=== PATIENT | female | born 1960 | race African-American/Black ===

== ENCOUNTER 2021-07-14 08:44 | Inpatient (IN) | payer MEDICAID, OTHER ==
[~2021-07-14] VITALS: Ht 167.6 cm; Wt 78.5 kg
[2021-07-14] MEDS ORDERED: SODIUM CHLORIDE 0.9% 1,000 ML IV ONE (09:00)
[2021-07-14 11:11] LABS: BASOPHILS % 0.2 % (0.0-2.0); EOSINOPHILS % 0.2 % (0.0-5.0); HEMATOCRIT. 35.5 % (36.0-48.0); HEMOGLOBIN. 10.8 g/dL (12.0-16.0); LYMPHOCYTES % 11.1 % (20.0-50.0); MEAN CORPUSCULAR HEMOGLOBIN 23.7 pg (28.0-32.0); MEAN CORPUSCULAR VOLUME 78.3 fL (81.0-99.0); MEAN PLATELET VOLUME 8.4 fl (7.4-10.4); MONOCYTES % 10.9 % (2.0-8.0); NEUTROPHILS % 77.6 % (40.0-76.0); PLATELET 395 x1000/uL (130-400); RED BLOOD CELL COUNT 4.54 mill/uL (4.2-5.4); RED CELL DISTRIBUTION WIDTH 21.6 % (11.6-14.6)
[2021-07-14 11:14] LABS: CHLORIDE 101 mEq/L (98-107)
[2021-07-14 11:20] LABS: INR 1.1
[2021-07-14 12:04] LABS: CLARITY URINE TURBID (CLEAR); COLOR URINE DARK YELLOW (YELLOW); KETONES URINE TRACE (NEGATIVE); LEUKOCYTE ESTERASE URINE TRACE (NEGATIVE); NITRITE URINE NEGATIVE (NEGATIVE); OCCULT BLOOD URINE 1+ (NEGATIVE); PROTEIN URINE 4+ (NEGATIVE); SPECIFIC GRAVITY URINE 1.025 (1.005-1.030)
[2021-07-14] MEDS ORDERED: CEFTRIAXONE 1 G PREMIX 50 ML IV ONE (12:45)
[2021-07-14] MEDS ORDERED: METRONIDAZOLE 500MG TABLET PO ONE (12:45)
[2021-07-14 23:00] VITALS: BP 135/96
[2021-07-15] MEDS ORDERED: METRONIDAZOLE 500 MG PREMIX 100 ML IV SCH
[2021-07-15] MEDS ORDERED: ONDANSETRON HCL 4MG/2ML INJ IV PRN
[2021-07-15] MEDS ORDERED: NALOXONE HCL 0.4 MG/ML 1ML VIAL IV PRN (00:30)
[2021-07-15 01:27] LABS: HEMATOCRIT 32.5 % (36.0-48.0); HEMOGLOBIN 10.1 g/dL (12.0-16.0); MEAN CORPUSCULAR HEMOGLOBIN 23.8 pg (28.0-32.0); MEAN CORPUSCULAR VOLUME 76.7 fL (81.0-99.0); PLATELET 297 x1000/uL (130-400); RED BLOOD CELL COUNT 4.24 mill/uL (4.2-5.4); RED CELL DISTRIBUTION WIDTH 21.3 % (11.6-14.6)
[2021-07-15] MEDS: DEXT 5%/0.45% NACL KCL 20MEQ/L 1,000 ML IV SCH ×3 (01:31→21:00)
[2021-07-15] MEDS: METRONIDAZOLE 500MG TABLET PO SCH ×4 (01:32→21:00)
[2021-07-15] MEDS ORDERED: ALPR0.25 PO (03:40)
[2021-07-15] MEDS ORDERED: MORP60CP14 PO (03:40)
[2021-07-15] MEDS ORDERED: OXYC80TA40 PO (03:40)
[2021-07-15 07:22] LABS: BASOPHILS % 0.2 % (0.0-2.0); EOSINOPHILS % 0.8 % (0.0-5.0); HEMATOCRIT. 29.4 % (36.0-48.0); HEMOGLOBIN. 9.1 g/dL (12.0-16.0); LYMPHOCYTES % 19.4 % (20.0-50.0); MEAN CORPUSCULAR HEMOGLOBIN 23.9 pg (28.0-32.0); MEAN CORPUSCULAR VOLUME 76.7 fL (81.0-99.0); MEAN PLATELET VOLUME 8.5 fl (7.4-10.4); MONOCYTES % 12.7 % (2.0-8.0); NEUTROPHILS % 66.9 % (40.0-76.0); PLATELET 275 x1000/uL (130-400); RED BLOOD CELL COUNT 3.84 mill/uL (4.2-5.4); RED CELL DISTRIBUTION WIDTH 21.8 % (11.6-14.6)
[2021-07-15 07:30] LABS: CHLORIDE 104 mEq/L (98-107)
[2021-07-15 08:00] VITALS: BP 110/53
[2021-07-15 12:30] VITALS: BP 114/74
[2021-07-15] MEDS: CEFTRIAXONE 1,000 MG in DEXTROSE 5% WATER 50 ML IV SCH ×3 (13:26→16:04)
[2021-07-15] MEDS: HYDROCODONE/ACETAMINOPHEN 10/325MG TABLET PO PRN (13:40)
[2021-07-15 16:00] VITALS: BP 118/94
[2021-07-15] MEDS: METOCLOPRAMIDE HCL 10MG/2ML VIAL IV SCH (18:31)
[2021-07-15] MEDS: PANTOPRAZOLE SODIUM 40 MG/VIAL IV SCH (18:31)
[2021-07-15 19:14] LABS: TOTAL IRON BINDING CAPACITY 244 ug/dL (250-450)
[2021-07-15 19:38] LABS: FERRITIN 243 ng/mL (10-291); FOLIC ACID (FOLATE) SERUM >20 ng/mL ng/mL (>5.38)
[2021-07-15 19:49] LABS: VITAMIN B12 SERUM 555 pg/mL (211-911)
[2021-07-15 20:00] VITALS: BP 116/92
[2021-07-15] MEDS: LORAZEPAM 2MG/ML CPJ IV PRN (20:39)
[2021-07-16] VITALS: BP 122/90
[2021-07-16] MEDS: METOCLOPRAMIDE HCL 10MG/2ML VIAL IV SCH ×5 (00:36→23:27)
[2021-07-16 04:00] VITALS: BP 139/73
[2021-07-16] MEDS: DEXT 5%/0.45% NACL KCL 20MEQ/L 1,000 ML IV SCH ×2 (06:18→16:45)
[2021-07-16 07:05] LABS: BASOPHILS % 0.3 % (0.0-2.0); HEMATOCRIT. 28.3 % (36.0-48.0); HEMOGLOBIN. 8.9 g/dL (12.0-16.0); LYMPHOCYTES % 22.6 % (20.0-50.0); MEAN CORPUSCULAR HEMOGLOBIN 23.9 pg (28.0-32.0); MEAN PLATELET VOLUME 8.5 fl (7.4-10.4); MONOCYTES % 14.9 % (2.0-8.0); NEUTROPHILS % 60.2 % (40.0-76.0); PLATELET 240 x1000/uL (130-400); RED BLOOD CELL COUNT 3.73 mill/uL (4.2-5.4); RED CELL DISTRIBUTION WIDTH 21.6 % (11.6-14.6)
[2021-07-16 08:00] VITALS: BP 125/73
[2021-07-16] MEDS: PANTOPRAZOLE SODIUM 40 MG/VIAL IV SCH ×2 (09:15→16:45)
[2021-07-16] MEDS: METRONIDAZOLE 500MG TABLET PO SCH ×4 (09:15→23:27)
[2021-07-16] MEDS ORDERED: KCL 20MEQ/100ML PREMIX 100 ML IV SCH (10:00)
[2021-07-16] MEDS: IRON SUCROSE COMPLEX 100 MG/5 ML ML IV SCH (10:45)
[2021-07-16 11:58] LABS: PHOSPHORUS 2.6 mg/dL (2.5-4.9)
[2021-07-16 12:00] VITALS: BP 149/87
[2021-07-16 12:15] LABS: HEPATITIS B SURFACE ANTIGEN NEGATIVE
[2021-07-16] MEDS: MORPHINE SULFATE 2 MG/ML CPJ (NOT FOR IM USE) IV PRN ×2 (13:27→21:49)
[2021-07-16 16:00] VITALS: BP 167/95
[2021-07-16] MEDS: AMLODIPINE 10MG TABLET PO SCH ×3 (16:30→17:13)
[2021-07-16] MEDS: CEFTRIAXONE 1,000 MG in DEXTROSE 5% WATER 50 ML IV SCH (16:45)
[2021-07-16] MEDS: LORAZEPAM 2MG/ML CPJ IV PRN (17:17)
[2021-07-16 20:00] VITALS: BP 142/81
[2021-07-17] VITALS: BP 153/78
[2021-07-17] MEDS: DEXT 5%/0.45% NACL KCL 20MEQ/L 1,000 ML IV SCH ×3 (01:53→23:08)
[2021-07-17 04:00] VITALS: BP 158/79
[2021-07-17 05:58] LABS: BASOPHILS % 0.5 % (0.0-2.0); EOSINOPHILS % 1.1 % (0.0-5.0); HEMATOCRIT. 30.8 % (36.0-48.0); HEMOGLOBIN. 9.8 g/dL (12.0-16.0); LYMPHOCYTES % 20.1 % (20.0-50.0); MEAN CORPUSCULAR VOLUME 75.6 fL (81.0-99.0); MEAN PLATELET VOLUME 8.8 fl (7.4-10.4); MONOCYTES % 14.6 % (2.0-8.0); NEUTROPHILS % 63.7 % (40.0-76.0); PLATELET 300 x1000/uL (130-400); RED BLOOD CELL COUNT 4.08 mill/uL (4.2-5.4); RED CELL DISTRIBUTION WIDTH 22.4 % (11.6-14.6)
[2021-07-17] MEDS: METOCLOPRAMIDE HCL 10MG/2ML VIAL IV SCH ×4 (06:09→23:08)
[2021-07-17] MEDS: METRONIDAZOLE 500MG TABLET PO SCH ×3 (06:09→23:08)
[2021-07-17 08:00] VITALS: BP 158/77
[2021-07-17] MEDS: IRON SUCROSE COMPLEX 100 MG/5 ML ML IV SCH (09:01)
[2021-07-17] MEDS: LORAZEPAM 2MG/ML CPJ IV PRN ×2 (09:01→23:08)
[2021-07-17] MEDS: PANTOPRAZOLE SODIUM 40 MG/VIAL IV SCH ×2 (09:01→17:55)
[2021-07-17] MEDS: AMLODIPINE 10MG TABLET PO SCH (09:01)
[2021-07-17 11:55] VITALS: BP 159/89
[2021-07-17 12:34] LABS: PLATELET ESTIMATE NORMAL
[2021-07-17] MEDS: CEFTRIAXONE 1,000 MG in DEXTROSE 5% WATER 50 ML IV SCH (15:03)
[2021-07-17] MEDS: MORPHINE SULFATE 2 MG/ML CPJ (NOT FOR IM USE) IV PRN ×2 (15:03→21:22)
[2021-07-17 15:52] VITALS: BP 158/88
[2021-07-17 20:00] VITALS: BP 153/82
[2021-07-18] VITALS: BP 148/78
[2021-07-18 04:00] VITALS: BP 157/86
[2021-07-18] MEDS: METRONIDAZOLE 500MG TABLET PO SCH ×3 (04:56→22:55)
[2021-07-18] MEDS: MORPHINE SULFATE 2 MG/ML CPJ (NOT FOR IM USE) IV PRN ×2 (04:57→17:46)
[2021-07-18] MEDS: METOCLOPRAMIDE HCL 10MG/2ML VIAL IV SCH ×4 (04:57→22:55)
[2021-07-18 08:00] VITALS: BP 154/82
[2021-07-18 08:21] LABS: CHLORIDE 104 mEq/L (98-107)
[2021-07-18 08:23] LABS: BASOPHILS % 0.3 % (0.0-2.0); EOSINOPHILS % 1.2 % (0.0-5.0); HEMATOCRIT. 31.6 % (36.0-48.0); HEMOGLOBIN. 10.1 g/dL (12.0-16.0); LYMPHOCYTES % 22.3 % (20.0-50.0); MEAN CORPUSCULAR HEMOGLOBIN 24.2 pg (28.0-32.0); MEAN CORPUSCULAR VOLUME 75.8 fL (81.0-99.0); MEAN PLATELET VOLUME 8.5 fl (7.4-10.4); MONOCYTES % 13.6 % (2.0-8.0); NEUTROPHILS % 62.6 % (40.0-76.0); PLATELET 324 x1000/uL (130-400); RED BLOOD CELL COUNT 4.17 mill/uL (4.2-5.4); RED CELL DISTRIBUTION WIDTH 21.5 % (11.6-14.6)
[2021-07-18] MEDS: PANTOPRAZOLE SODIUM 40 MG/VIAL IV SCH ×2 (09:51→17:44)
[2021-07-18] MEDS: IRON SUCROSE COMPLEX 100 MG/5 ML ML IV SCH (09:52)
[2021-07-18] MEDS: DEXT 5%/0.45% NACL KCL 20MEQ/L 1,000 ML IV SCH ×2 (09:52→19:49)
[2021-07-18] MEDS: AMLODIPINE 10MG TABLET PO SCH (09:52)
[2021-07-18 12:00] VITALS: BP 139/79
[2021-07-18] MEDS: CEFTRIAXONE 1,000 MG in DEXTROSE 5% WATER 50 ML IV SCH (13:25)
[2021-07-18] MEDS ORDERED: GADOTERATE MEGLUMINE 5 MMOL/10 ML VIAL IV ONE (13:51)
[2021-07-18] MEDS ORDERED: POTASSIUM CHLORIDE 20MEQ TABLET SR PO NR (15:00)
[2021-07-18 16:00] VITALS: BP 152/81
[2021-07-18 17:46] LABS: PHOSPHORUS 1.4 mg/dL (2.5-4.9)
[2021-07-18] MEDS: HYDROCODONE/ACETAMINOPHEN 10/325MG TABLET PO PRN (19:49)
[2021-07-18 20:00] VITALS: BP 140/70
[2021-07-18] MEDS ORDERED: MAGNESIUM 2 G PREMIX 50 ML IV NR (21:00)
[2021-07-19] VITALS: BP 153/82
[2021-07-19] MEDS: MORPHINE SULFATE 2 MG/ML CPJ (NOT FOR IM USE) IV PRN ×3 (00:05→17:26)
[2021-07-19 04:00] VITALS: BP 158/87
[2021-07-19] MEDS: DEXT 5%/0.45% NACL KCL 20MEQ/L 1,000 ML IV SCH ×2 (05:00→16:38)
[2021-07-19] MEDS: METOCLOPRAMIDE HCL 10MG/2ML VIAL IV SCH ×3 (06:06→17:26)
[2021-07-19] MEDS: METRONIDAZOLE 500MG TABLET PO SCH ×3 (06:06→21:28)
[2021-07-19 07:48] VITALS: BP 155/82
[2021-07-19 07:59] LABS: CHLORIDE 104 mEq/L (98-107)
[2021-07-19] MEDS: AMLODIPINE 10MG TABLET PO SCH (08:11)
[2021-07-19] MEDS: PANTOPRAZOLE SODIUM 40 MG/VIAL IV SCH ×2 (08:11→16:38)
[2021-07-19 08:14] LABS: HEMOGLOBIN. 10.6 g/dL (12.0-16.0); MEAN CORPUSCULAR HEMOGLOBIN 23.5 pg (28.0-32.0); MEAN CORPUSCULAR VOLUME 75.8 fL (81.0-99.0); MEAN PLATELET VOLUME 8.3 fl (7.4-10.4); PLATELET 330 x1000/uL (130-400); RED BLOOD CELL COUNT 4.49 mill/uL (4.2-5.4)
[2021-07-19] MEDS ORDERED: POTASSIUM PHOS,M-BASIC-D-BASIC 15 MMOL in DEXT 5% WATER 245 ML IV SCH (11:00)
[2021-07-19 12:20] VITALS: BP 151/88
[2021-07-19 13:02] LABS: PLATELET ESTIMATE NORMAL
[2021-07-19] MEDS: CEFTRIAXONE 1,000 MG in DEXTROSE 5% WATER 50 ML IV SCH (13:15)
[2021-07-19] MEDS ORDERED: MAGNESIUM 2 G PREMIX 50 ML IV SCH (15:00)
[2021-07-19 16:29] VITALS: BP 147/88
[2021-07-19 20:00] VITALS: BP 140/83
[2021-07-19] MEDS: HYDROCODONE/ACETAMINOPHEN 10/325MG TABLET PO PRN (21:29)
[2021-07-20] VITALS: BP 142/88
[2021-07-20] MEDS: METOCLOPRAMIDE HCL 10MG/2ML VIAL IV SCH ×5 (00:38→23:34)
[2021-07-20] MEDS: DEXT 5%/0.45% NACL KCL 20MEQ/L 1,000 ML IV SCH ×2 (02:01→10:06)
[2021-07-20 04:00] VITALS: BP 148/88
[2021-07-20] MEDS ORDERED: CLONIDINE 0.1MG TABLET PO PRN (04:30)
[2021-07-20] MEDS ORDERED: HYDRALAZINE 20MG/ML VIAL IV PRN (04:30)
[2021-07-20 06:34] LABS: HEMATOCRIT. 32.4 % (36.0-48.0); HEMOGLOBIN. 10.4 g/dL (12.0-16.0); MEAN CORPUSCULAR HEMOGLOBIN 24.2 pg (28.0-32.0); MEAN CORPUSCULAR VOLUME 75.7 fL (81.0-99.0); MEAN PLATELET VOLUME 8.3 fl (7.4-10.4); PLATELET 303 x1000/uL (130-400); RED BLOOD CELL COUNT 4.28 mill/uL (4.2-5.4); RED CELL DISTRIBUTION WIDTH 21.6 % (11.6-14.6)
[2021-07-20 07:10] LABS: CHLORIDE 105 mEq/L (98-107)
[2021-07-20 07:23] LABS: PHOSPHORUS 2.2 mg/dL (2.5-4.9)
[2021-07-20 07:50] VITALS: BP 146/87
[2021-07-20 08:11] LABS: ANTI-NUCLEAR ANTIBODIES DIRECT Negative (Negative)
[2021-07-20] MEDS: FAMOTIDINE 20MG/2ML VIAL IV SCH ×2 (08:37→20:41)
[2021-07-20] MEDS: AMLODIPINE 10MG TABLET PO SCH (08:38)
[2021-07-20] MEDS ORDERED: TETRACAINE/BENZOCAINE/BUTAMBEN 20 GM SPRAY MM ONE (11:23)
[2021-07-20] MEDS ORDERED: LIDOCAINE HCL 2% JELLY 5ML ONE (11:23)
[2021-07-20] MEDS ORDERED: MIDAZOLAM HCL 2 MG/2 ML VIAL ONE ×2 (11:23→11:33)
[2021-07-20] MEDS ORDERED: FENTANYL CITRATE/PF 50MCG/ML 2ML VIAL ONE (11:23)
[2021-07-20] MEDS ORDERED: POTASSIUM PHOS,M-BASIC-D-BASIC 20 MMOL in DEXT 5% WATER 243.3333 ML IV NR (11:30)
[2021-07-20] MEDS ORDERED: MAGNESIUM 2 G PREMIX 50 ML IV NR (11:30)
[2021-07-20 15:52] VITALS: BP 154/98
[2021-07-20] MEDS: APIXABAN 5 MG TABLET PO SCH (16:02)
[2021-07-20] MEDS: HYDROCODONE/ACETAMINOPHEN 10/325MG TABLET PO PRN ×2 (16:03→23:32)
[2021-07-20] MEDS ORDERED: MIDAZOLAM HCL 5 MG/5 ML VIAL ONE (16:54)
[2021-07-20] MEDS ORDERED: FENTANYL CITRATE/PF 50MCG/ML 5ML VIAL ONE (16:54)
[2021-07-20 19:43] LABS: PLATELET ESTIMATE NORMAL
[2021-07-20 20:00] VITALS: BP 137/83
[2021-07-21 00:14] VITALS: BP 150/78
[2021-07-21 04:00] VITALS: BP 143/88
[2021-07-21] MEDS: METOCLOPRAMIDE HCL 10MG/2ML VIAL IV SCH ×3 (05:20→17:17)
[2021-07-21 08:00] VITALS: BP 151/83
[2021-07-21 08:13] LABS: BASOPHILS % 0.6 % (0.0-2.0); HEMATOCRIT. 35.6 % (36.0-48.0); HEMOGLOBIN. 10.9 g/dL (12.0-16.0); LYMPHOCYTES % 32.8 % (20.0-50.0); MEAN CORPUSCULAR HEMOGLOBIN 23.7 pg (28.0-32.0); MEAN CORPUSCULAR VOLUME 77.1 fL (81.0-99.0); MEAN PLATELET VOLUME 7.5 fl (7.4-10.4); MONOCYTES % 10.6 % (2.0-8.0); PLATELET 288 x1000/uL (130-400); RED BLOOD CELL COUNT 4.61 mill/uL (4.2-5.4); RED CELL DISTRIBUTION WIDTH 22.4 % (11.6-14.6)
[2021-07-21 08:33] LABS: CHLORIDE 106 mEq/L (98-107)
[2021-07-21] MEDS: FAMOTIDINE 20MG/2ML VIAL IV SCH (09:35)
[2021-07-21] MEDS: APIXABAN 5 MG TABLET PO SCH ×2 (09:36→17:17)
[2021-07-21] MEDS: HYDROCODONE/ACETAMINOPHEN 10/325MG TABLET PO PRN (09:36)
[2021-07-21] MEDS: AMLODIPINE 10MG TABLET PO SCH (09:37)
[2021-07-21 12:00] VITALS: BP 170/80
[2021-07-21 16:00] VITALS: BP 130/79
[2021-07-21] MEDS ORDERED: LOSA25TA26 PO (16:38)
[2021-07-21] MEDS ORDERED: MORP60TA6 PO (16:38)
[2021-07-21] MEDS ORDERED: ONDA8TAB59 PO (16:38)
[2021-07-21] MEDS ORDERED: DIPH1TAB24 PO (16:38)
[2021-07-21] MEDS ORDERED: DULO30CA52 PO (16:38)
[2021-07-21] MEDS ORDERED: ALBU6.7H9 INH (16:38)
[2021-07-21] MEDS ORDERED: APIX5TAB PO (17:39)
[2021-07-21 18:18] VITALS: BP 130/79
[2021-07-21] MEDS ORDERED: FAMOTIDINE 20MG TABLET PO SCH (21:00)
[2021-07-21] MEDS ORDERED: ATORVASTATIN CALCIUM 40MG TABLET PO SCH (21:00)
[2021-07-27] MEDS ORDERED: APIXABAN 5 MG TABLET PO SCH (17:00)
== END 2021-07-21 18:43 | disposition home health service (06) | DRG 45 ==
LOC: ER 09:06 → 6WST 15:43 → EDBEDREQTM 15:46 → EDBEDREQ 15:46 → ENRESERV 21:44 → 6WST 23:55
PROVIDERS: ADMIT Internal Medicine; ATTEND Internal Medicine
DX: I63.40 Cerebral infarction due to embolism of unspecified cerebral artery (principal); N17.0 Acute kidney failure with tubular necrosis; E46 Unspecified protein-calorie malnutrition; C78.7 Secondary malignant neoplasm of liver and intrahepatic bile duct; C78.4 Secondary malignant neoplasm of small intestine; E87.1 Hypo-osmolality and hyponatremia; C18.9 Malignant neoplasm of colon, unspecified; D50.9 Iron deficiency anemia, unspecified; C78.00 Secondary malignant neoplasm of unspecified lung; D25.9 Leiomyoma of uterus, unspecified; E87.6 Hypokalemia; I10 Essential (primary) hypertension; N39.0 Urinary tract infection, site not specified; K31.89 Other diseases of stomach and duodenum; G90.8 Other disorders of autonomic nervous system; Z20.822 Contact with and (suspected) exposure to COVID-19; R19.7 Diarrhea, unspecified; R80.9 Proteinuria, unspecified; I45.10 Unspecified right bundle-branch block; E83.42 Hypomagnesemia; I16.0 Hypertensive urgency; I51.3 Intracardiac thrombosis, not elsewhere classified; Z85.038 Personal history of other malignant neoplasm of large intestine; Z68.27 Body mass index [BMI] 27.0-27.9, adult; Z86.73 Personal history of transient ischemic attack (TIA), and cerebral infarction without residual deficits; Z85.05 Personal history of malignant neoplasm of liver
CPT/HCPCS: 36415; 70551; 70552; 71045; 74018; 74176; 80048; 80053; 80061; 81003; 82140; 82270; 82550; 82570; 82607; 82728; 82746; 83036; 83540; 83550; 83605; 83735; 83880; 84100; 84145; 84156; 84300; 84484; 85025; 85027; 85044; 86038; 86160; 86592; 86803; 86850; 86900; 87015; 87045; 87340; 87426; 87427; 87449; 93005; 93306; 93312; 93970; 97162; 99291; A9577; C1893; C9113; J0360; J0696; J2060; J2250; J2270; J2765; J3010; J3475; J3480; J3490; J7030; J7040; J7060